=== PATIENT | female | born 1990 | race Caucasian/White ===

== ENCOUNTER → 2016-07-15 | Outpatient (CLI) | payer OTHER | LOC: US 15:00 | DX: R53.83 Other fatigue (principal); R52 Pain, unspecified; I65.23 Occlusion and stenosis of bilateral carotid arteries | CPT/HCPCS: 93880 ==

== ENCOUNTER → 2016-07-24 | Outpatient (CLI) | payer OTHER | LOC: US 14:17 | DX: R13.0 Aphagia (principal) | CPT/HCPCS: 76536 ==